=== PATIENT | male | born 1930 | race Caucasian/White ===

== ENCOUNTER 2017-02-19 10:44 | Emergency (ER) | payer OTHER ==
[~2017-02-19] VITALS: Ht 180.3 cm; Wt 60.1 kg
[~2017-02-19 10:44] MED LIST: ADVAIR HFA120 INHALA IH; ASPIR 8181 M1 PO; ASPIR-TRIN325 M1 PO; BETIMOL 0.100 DROP/5 RIGHT EYE; CIPROFLOXACIN500 M1 PO; COLACE100 MG PO; CYANOCOBALAM1000 MCG PO; Colace PO; DAILY VITE1 EAC1 PO; DOCUSATE SODIU100 MG PO; DONNATAL1 TABLET PO; DULCOLAX10 MG PR; Dulcolax PO; Ecotrin PO; FLOMAX0.4 MG PO; LIPITOR20 MG PO; LO-DOSE ASPIRIN81 M1 PO; LORAZEPAM0.5 MG PO; MELATIN3 MG PO; MILK OF MAGN PO; NORVASC10 MG PO; Norvasc PO; Oyst-Cal D, Oscal W/ PO; PANTOPRAZOLE SO40 MG PO; PREDNISONE2.5 MG PO; PREDNISONE5 M2 PO; Protonix PO; SENOKOT S,PE1 TABLET PO; SERAX10 MG PO; SPIRIVA RESPIMAT4 GM IH; Senokot S,Pericolace PO; TAMSULOSIN HCL0.4 MG PO; THERAGRAN1 TABLET PO; TIMOPTIC OP; TIMOPTIC-0100 DROP/1 BOTH EYES; Timoptic-0.5%,Isatol BOTH EYES; Tylenol Regular Stre PO; Vitamin B-12 PO; ZOLOFT25 MG PO; Zocor PO; predniSONE PO
[2017-02-19 12:11] LABS: EOSINOPHIL (%) 0.8 % (0-5); IMMATURE GRANULOCYTE (%) 0.4 % (0.0-0.7); INSTRUMENT ABS NEUTROPHIL CT 3.6 K/uL; LYMPHOCYTE COUNT 0.4 K/uL (1.0-2.8); MCH 25.2 PG (29.0-34.0); MCHC 30.3 G/DL (30.0-36.0); MCV 83.1 FL (86-99); MONOCYTE COUNT 0.8 K/uL (0-0.8); NEUTROPHIL (%) 73.9 % (45-76); NEUTROPHIL COUNT 3.6 K/uL (1.8-6.4); PLATELET COUNT 248 K/uL (156-360); RBC DIS.WIDTH-CV 18.7 % (11.8-14.6); RBC DIS.WIDTH-SD 56.6 % (39-53); RED BLOOD COUNT 3.97 M/uL (4.00-5.50); WHITE BLOOD COUNT 4.8 K/uL (4.1-10.2)
[2017-02-19 12:25] LABS: CHLORIDE 105 mEq/L (99-109); SODIUM 137 mEq/L (136-147)
[2017-02-19 12:26] LABS: GLUCOSE 85 mg/dL (70-99)
[2017-02-19 12:28] LABS: ANION GAP 6 MEQ/L (2-14)
[2017-02-19 12:30] LABS: GFR ESTIMATE (CALCULATED) > 59 mL/min/
[2017-02-19 12:31] LABS: UREA NITROGEN (BUN) 23 mg/dL (9-23)
[2017-02-19 13:54] LABS: ADD MIUA? YES; BILIRUBIN NEGATIVE; BLOOD NEGATIVE; COLOR YELLOW ((YELLOW)); GLUCOSE (STRIP) NEGATIVE; KETONES NEGATIVE; LEUKOCYTES TRACE; NITRITE NEGATIVE; PROTEIN (STRIP) NEGATIVE; SPECIFIC GRAVITY 1.015 (1.000-1.030); UROBILINOGEN 0.2 MG/DL (0.2-1.0)
[2017-02-19 14:01] LABS: BACTERIA RARE /HPF; EPITHELIAL CELLS NONE SEEN /HPF; HYALINE CASTS 0-5 /LPF; MUCUS TRACE /LPF; RED BLOOD CELLS 0-5 /HPF (0-5)
[2017-02-19] MEDS ORDERED: LEVAQUIN500 MG PO (14:49)
[2017-02-19 16:47] VITALS: BP 133/72
== END 2017-02-19 16:48 | disposition home or self-care (01) ==
LOC: EME 10:44
PROVIDERS: Emergency Medicine
DX: N39.0 Urinary tract infection, site not specified (principal); R53.1 Weakness; W06.XXXA Fall from bed, initial encounter; I10 Essential (primary) hypertension; Z87.442 Personal history of urinary calculi; Z85.51 Personal history of malignant neoplasm of bladder; Z86.73 Personal history of transient ischemic attack (TIA), and cerebral infarction without residual deficits; F32.9 Major depressive disorder, single episode, unspecified; Z88.1 Allergy status to other antibiotic agents; Z87.891 Personal history of nicotine dependence
CPT/HCPCS: 70450; 71010; 80048; 81003; 85025; 93005; 99281; 99284

== ENCOUNTER 2017-02-26 15:17 | Inpatient (IN) | payer OTHER ==
[~2017-02-26] VITALS: Ht 180.3 cm; Wt 48.1 kg
[~2017-02-26 15:17] MED LIST changes: +LEVAQUIN500 MG PO
[2017-02-26 16:33] LABS: HEMATOCRIT 32.2 % (38.0-50.0); MCH 25.7 PG (29.0-34.0); MCHC 30.7 G/DL (30.0-36.0); MCV 83.6 FL (86-99); MEAN PLAT.VOLUME 8.9 uM^3 (9.0-12.4); PLATELET COUNT 180 K/uL (156-360); RBC DIS.WIDTH-CV 19.1 % (11.8-14.6); RBC DIS.WIDTH-SD 57.9 % (39-53); RED BLOOD COUNT 3.85 M/uL (4.00-5.50)
[2017-02-26 16:45] LABS: CHLORIDE 104 mEq/L (99-109); POTASSIUM 3.9 mEq/L (3.7-5.4); SODIUM 136 mEq/L (136-147)
[2017-02-26 16:47] LABS: GLUCOSE 129 mg/dL (70-99)
[2017-02-26 16:48] LABS: ANION GAP 8 MEQ/L (2-14)
[2017-02-26 16:49] LABS: TOTAL BILIRUBIN 0.6 mg/dL (0.0-1.0)
[2017-02-26 16:51] LABS: ALKALINE PHOSPHATASE 80 IU/L (3-129); GFR ESTIMATE (CALCULATED) 51 mL/min/
[2017-02-26 16:52] LABS: UREA NITROGEN (BUN) 31 mg/dL (9-23)
[2017-02-26 16:53] LABS: DIRECT BILIRUBIN 0.3 mg/dL (0.0-0.3)
[2017-02-26 18:09] LABS: C DIFF TOXIN NEGATIVE (NEGATIVE)
[2017-02-26 18:11] LABS: PROBE CHECK PASS; SPECIMEN PROCESSING CONTROL PASS
[2017-02-26] MEDS ORDERED: LIPITOR20 MG PO (19:51)
[2017-02-26] MEDS ORDERED: IRON325 M1 PO (19:52)
[2017-02-26 22:10] LABS: ADD MIUA? YES; BILIRUBIN NEGATIVE; BLOOD SMALL; COLOR YELLOW ((YELLOW)); GLUCOSE (STRIP) 50; KETONES NEGATIVE; LEUKOCYTES NEGATIVE; NITRITE NEGATIVE; PROTEIN (STRIP) NEGATIVE; SPECIFIC GRAVITY 1.028 (1.000-1.030); UROBILINOGEN 0.2 MG/DL (0.2-1.0)
[2017-02-26 22:30] LABS: BACTERIA NONE SEEN /HPF; EPITHELIAL CELLS RARE /HPF; MUCUS NONE SEEN /LPF; RED BLOOD CELLS 0-5 /HPF (0-5); WHITE BLOOD CELLS 0-5 /HPF (0-5)
[2017-02-26 22:52] VITALS: BP 146/82
[2017-02-26 22:56] LABS: TROP-I INTERPRETATION NEGATIVE; TROPONIN-I 0.01 ng/mL (0.0-0.30)
[2017-02-27 03:01] VITALS: BP 130/60
[2017-02-27 03:19] LABS: HEMATOCRIT 34.6 % (38.0-50.0); MCV 82.6 FL (86-99)
[2017-02-27 03:40] LABS: TROP-I INTERPRETATION NEGATIVE; TROPONIN-I 0.04 ng/mL (0.0-0.30)
[2017-02-27 07:23] LABS: HEMATOCRIT 32.9 % (38.0-50.0); MCV 83.9 FL (86-99); MEAN PLAT.VOLUME 9.3 uM^3 (9.0-12.4); PLATELET COUNT 211 K/uL (156-360); RBC DIS.WIDTH-CV 19.6 % (11.8-14.6); RBC DIS.WIDTH-SD 60.7 % (39-53); RED BLOOD COUNT 3.92 M/uL (4.00-5.50); WHITE BLOOD COUNT 9.4 K/uL (4.1-10.2)
[2017-02-27 07:52] LABS: ANION GAP 6 MEQ/L (2-14); CHLORIDE 111 MEQ/L (99-109); GFR ESTIMATE (CALCULATED) > 59 mL/min/; GLUCOSE 105 mg/dL (70-99); POTASSIUM 3.9 MEQ/L (3.7-5.4); SAMPLE HEMOLYSIS CHECK 0; SAMPLE ICTERIC CHECK 0; SAMPLE LIPEMIA CHECK 0; SODIUM 142 MEQ/L (136-147); UREA NITROGEN (BUN) 23 mg/dL (9-23)
[2017-02-27 09:21] VITALS: BP 121/64
[2017-02-27 09:33] LABS: TROP-I INTERPRETATION NEGATIVE; TROPONIN-I 0.05 ng/mL (0.0-0.30)
[2017-02-27 14:57] LABS: HEMATOCRIT 32.4 % (38.0-50.0); MCH 26.1 PG (29.0-34.0); MCHC 30.9 G/DL (30.0-36.0); MCV 84.6 FL (86-99); MEAN PLAT.VOLUME 9.4 uM^3 (9.0-12.4); PLATELET COUNT 198 K/uL (156-360); RBC DIS.WIDTH-CV 19.3 % (11.8-14.6); RBC DIS.WIDTH-SD 59.3 % (39-53); RED BLOOD COUNT 3.83 M/uL (4.00-5.50); WHITE BLOOD COUNT 7.7 K/uL (4.1-10.2)
[2017-02-27 15:18] LABS: INTER. NORMALIZED RATIO 1.2; PTT 34.8 (25-32)
[2017-02-27 16:08] VITALS: BP 110/58
[2017-02-27 19:40] VITALS: BP 133/70
[2017-02-27 20:03] LABS: EOSINOPHIL (%) 0.2 % (0-5); IMMATURE GRANULOCYTE (%) 0.4 % (0.0-0.7); LYMPHOCYTE COUNT 0.4 K/uL (1.0-2.8); MCH 26.2 PG (29.0-34.0); MCHC 30.5 G/DL (30.0-36.0); MCV 85.6 FL (86-99); MEAN PLAT.VOLUME 9.8 uM^3 (9.0-12.4); MONOCYTE (%) 7.7 % (3-12); MONOCYTE COUNT 0.6 K/uL (0-0.8); PLATELET CLUMPS PRESENT - PLATELET COUNTS APPEARS DECREASED; RBC DIS.WIDTH-CV 19.6 % (11.8-14.6); RBC DIS.WIDTH-SD 61.2 % (39-53); RED BLOOD COUNT 4.32 M/uL (4.00-5.50); WHITE BLOOD COUNT 8.1 K/uL (4.1-10.2)
[2017-02-28 00:14] VITALS: BP 128/65
[2017-02-28 02:17] LABS: HEMATOCRIT 31.3 % (38.0-50.0); MCH 25.3 PG (29.0-34.0); MCHC 30.4 G/DL (30.0-36.0); MCV 83.2 FL (86-99); MEAN PLAT.VOLUME 9.1 uM^3 (9.0-12.4); PLATELET COUNT 199 K/uL (156-360); RBC DIS.WIDTH-CV 19.4 % (11.8-14.6); RBC DIS.WIDTH-SD 58.5 % (39-53); RED BLOOD COUNT 3.76 M/uL (4.00-5.50); WHITE BLOOD COUNT 7.2 K/uL (4.1-10.2)
[2017-02-28 03:45] VITALS: BP 131/62
[2017-02-28 07:31] LABS: EOSINOPHIL COUNT 0.1 K/uL (0-0.3); HEMATOCRIT 32.2 % (38.0-50.0); IMMATURE GRANULOCYTE (%) 0.5 % (0.0-0.7); INSTRUMENT ABS NEUTROPHIL CT 4.9 K/uL; LYMPHOCYTE COUNT 0.4 K/uL (1.0-2.8); MCH 26.3 PG (29.0-34.0); MCHC 31.4 G/DL (30.0-36.0); MCV 83.9 FL (86-99); MEAN PLAT.VOLUME 9.1 uM^3 (9.0-12.4); MONOCYTE (%) 11.5 % (3-12); MONOCYTE COUNT 0.7 K/uL (0-0.8); NEUTROPHIL (%) 79.9 % (45-76); NEUTROPHIL COUNT 4.9 K/uL (1.8-6.4); PLATELET COUNT 196 K/uL (156-360); RBC DIS.WIDTH-CV 19.5 % (11.8-14.6); RBC DIS.WIDTH-SD 59.9 % (39-53); RED BLOOD COUNT 3.84 M/uL (4.00-5.50); WHITE BLOOD COUNT 6.2 K/uL (4.1-10.2)
[2017-02-28 12:00] VITALS: BP 119/56
[2017-02-28 15:04] LABS: HEMATOCRIT 32.8 % (38.0-50.0); MCH 26.4 PG (29.0-34.0); MCHC 30.8 G/DL (30.0-36.0); MCV 85.6 FL (86-99); MEAN PLAT.VOLUME 9.2 uM^3 (9.0-12.4); PLATELET COUNT 237 K/uL (156-360); RBC DIS.WIDTH-CV 19.6 % (11.8-14.6); RBC DIS.WIDTH-SD 61.1 % (39-53); RED BLOOD COUNT 3.83 M/uL (4.00-5.50)
[2017-02-28 16:00] VITALS: BP 136/83
[2017-02-28 19:45] VITALS: BP 138/82
[2017-02-28 23:40] VITALS: BP 133/65
[2017-03-01 03:22] VITALS: BP 134/92
[2017-03-01 07:08] LABS: EOSINOPHIL (%) 1.1 % (0-5); EOSINOPHIL COUNT 0.1 K/uL (0-0.3); HEMATOCRIT 31.3 % (38.0-50.0); IMMATURE GRANULOCYTE (%) 0.5 % (0.0-0.7); LYMPHOCYTE COUNT 0.5 K/uL (1.0-2.8); MCV 83.9 FL (86-99); MEAN PLAT.VOLUME 9.1 uM^3 (9.0-12.4); MONOCYTE (%) 11.1 % (3-12); MONOCYTE COUNT 0.7 K/uL (0-0.8); NEUTROPHIL (%) 79.8 % (45-76); PLATELET COUNT 206 K/uL (156-360); RBC DIS.WIDTH-CV 19.3 % (11.8-14.6); RBC DIS.WIDTH-SD 59.3 % (39-53); RED BLOOD COUNT 3.73 M/uL (4.00-5.50); WHITE BLOOD COUNT 6.2 K/uL (4.1-10.2)
[2017-03-01 07:32] LABS: ALKALINE PHOSPHATASE 69 IU/L (3-129); ANION GAP 6 MEQ/L (2-14); CHLORIDE 110 MEQ/L (99-109); GFR ESTIMATE (CALCULATED) > 59 mL/min/; GLUCOSE 82 mg/dL (70-99); POTASSIUM 3.2 MEQ/L (3.7-5.4); SAMPLE HEMOLYSIS CHECK 0; SAMPLE ICTERIC CHECK 0; SAMPLE LIPEMIA CHECK 0; SODIUM 139 MEQ/L (136-147); TOTAL BILIRUBIN 0.6 MG/DL (0.0-1.0); UREA NITROGEN (BUN) 13 mg/dL (9-23)
[2017-03-01 08:00] VITALS: BP 141/78
[2017-03-01 11:43] VITALS: BP 132/74
[2017-03-01 16:48] VITALS: BP 143/67
[2017-03-02 07:09] LABS: EOSINOPHIL (%) 1.3 % (0-5); EOSINOPHIL COUNT 0.1 K/uL (0-0.3); HEMATOCRIT 34.2 % (38.0-50.0); IMMATURE GRANULOCYTE (%) 0.6 % (0.0-0.7); INSTRUMENT ABS NEUTROPHIL CT 3.9 K/uL; LYMPHOCYTE COUNT 0.5 K/uL (1.0-2.8); MCH 26.1 PG (29.0-34.0); MCV 84.2 FL (86-99); MEAN PLAT.VOLUME 9.5 uM^3 (9.0-12.4); MONOCYTE COUNT 0.8 K/uL (0-0.8); NEUTROPHIL (%) 73.5 % (45-76); NEUTROPHIL COUNT 3.9 K/uL (1.8-6.4); PLATELET COUNT 243 K/uL (156-360); RBC DIS.WIDTH-CV 19.3 % (11.8-14.6); RBC DIS.WIDTH-SD 59.8 % (39-53); RED BLOOD COUNT 4.06 M/uL (4.00-5.50); WHITE BLOOD COUNT 5.3 K/uL (4.1-10.2)
[2017-03-02 07:40] LABS: ANION GAP 11 MEQ/L (2-14); CHLORIDE 103 MEQ/L (99-109); GFR ESTIMATE (CALCULATED) > 59 mL/min/; GLUCOSE 66 mg/dL (70-99); SAMPLE HEMOLYSIS CHECK 0; SAMPLE ICTERIC CHECK 0; SAMPLE LIPEMIA CHECK 0; SODIUM 137 MEQ/L (136-147); UREA NITROGEN (BUN) 14 mg/dL (9-23)
[2017-03-02 07:47] VITALS: BP 161/78
[2017-03-02 07:47] LABS: POTASSIUM 4.2 MEQ/L (3.7-5.4)
[2017-03-02 15:27] VITALS: BP 146/81
[2017-03-02 23:30] VITALS: BP 140/78
[2017-03-03 06:48] LABS: HEMATOCRIT 35.9 % (38.0-50.0); MCH 25.9 PG (29.0-34.0); MCHC 31.2 G/DL (30.0-36.0); MCV 82.9 FL (86-99); MEAN PLAT.VOLUME 9.1 uM^3 (9.0-12.4); PLATELET COUNT 274 K/uL (156-360); RBC DIS.WIDTH-CV 18.8 % (11.8-14.6); RBC DIS.WIDTH-SD 57.2 % (39-53); RED BLOOD COUNT 4.33 M/uL (4.00-5.50); WHITE BLOOD COUNT 5.4 K/uL (4.1-10.2)
[2017-03-03 15:05] VITALS: BP 143/74
[2017-03-03 23:45] VITALS: BP 148/69
[2017-03-04 06:42] LABS: HEMATOCRIT 34.3 % (38.0-50.0); MCHC 31.5 G/DL (30.0-36.0); MCV 82.7 FL (86-99); MEAN PLAT.VOLUME 9.2 uM^3 (9.0-12.4); PLATELET COUNT 253 K/uL (156-360); RBC DIS.WIDTH-SD 57.4 % (39-53); RED BLOOD COUNT 4.15 M/uL (4.00-5.50); WHITE BLOOD COUNT 4.2 K/uL (4.1-10.2)
[2017-03-04 07:16] LABS: ANION GAP 7 MEQ/L (2-14); CHLORIDE 106 MEQ/L (99-109); GFR ESTIMATE (CALCULATED) > 59 mL/min/; MAGNESIUM 1.6 mg/dl (1.3-2.7); POTASSIUM 3.4 MEQ/L (3.7-5.4); SAMPLE HEMOLYSIS CHECK 0; SAMPLE ICTERIC CHECK 0; SAMPLE LIPEMIA CHECK 0; SODIUM 139 MEQ/L (136-147); UREA NITROGEN (BUN) 10 mg/dL (9-23)
[2017-03-04 07:20] LABS: GLUCOSE 111 mg/dL (70-99)
[2017-03-04 07:30] VITALS: BP 140/74
[2017-03-04 16:00] VITALS: BP 131/86
[2017-03-04 20:17] VITALS: BP 138/90
[2017-03-04 23:17] VITALS: BP 125/72
[2017-03-05 04:33] VITALS: BP 115/65
[2017-03-05 05:55] LABS: HEMATOCRIT 33.5 % (38.0-50.0); MCH 26.2 PG (29.0-34.0); MCHC 31.6 G/DL (30.0-36.0); MCV 82.7 FL (86-99); MEAN PLAT.VOLUME 8.8 uM^3 (9.0-12.4); PLATELET COUNT 247 K/uL (156-360); RBC DIS.WIDTH-SD 57.6 % (39-53); RED BLOOD COUNT 4.05 M/uL (4.00-5.50)
[2017-03-05 08:25] VITALS: BP 133/78
[2017-03-05 16:29] VITALS: BP 129/90
[2017-03-05 23:50] VITALS: BP 135/80
[2017-03-06 06:39] LABS: HEMATOCRIT 33.9 % (38.0-50.0); MCH 26.7 PG (29.0-34.0); MCHC 32.2 G/DL (30.0-36.0); MCV 82.9 FL (86-99); PLATELET COUNT 249 K/uL (156-360); RBC DIS.WIDTH-CV 19.3 % (11.8-14.6); RBC DIS.WIDTH-SD 57.7 % (39-53); RED BLOOD COUNT 4.09 M/uL (4.00-5.50); WHITE BLOOD COUNT 5.3 K/uL (4.1-10.2)
[2017-03-06 07:57] VITALS: BP 131/77
[2017-03-06 15:36] VITALS: BP 140/55
[2017-03-06 23:05] VITALS: BP 128/72
[2017-03-07 07:18] LABS: HEMATOCRIT 33.7 % (38.0-50.0); MCH 25.7 PG (29.0-34.0); MCHC 30.9 G/DL (30.0-36.0); MCV 83.4 FL (86-99); MEAN PLAT.VOLUME 9.3 uM^3 (9.0-12.4); PLATELET COUNT 244 K/uL (156-360); RBC DIS.WIDTH-CV 19.3 % (11.8-14.6); RBC DIS.WIDTH-SD 59.1 % (39-53); RED BLOOD COUNT 4.04 M/uL (4.00-5.50); WHITE BLOOD COUNT 4.6 K/uL (4.1-10.2)
[2017-03-07 08:00] VITALS: BP 153/90
[2017-03-07 16:50] VITALS: BP 125/85
== END 2017-03-07 18:09 | DRG 640 ==
LOC: EME 15:17 → 2EAST 20:51 → EDOF 20:51 → 2EAST 22:24
PROVIDERS: Emergency Medicine; Hospitalist; Internal Medicine; Specialist
DX: E86.1 Hypovolemia (principal); E86.0 Dehydration; I27.2 Other secondary pulmonary hypertension; I36.1 Nonrheumatic tricuspid (valve) insufficiency; I35.0 Nonrheumatic aortic (valve) stenosis; G31.84 Mild cognitive impairment of uncertain or unknown etiology; I10 Essential (primary) hypertension; I25.10 Atherosclerotic heart disease of native coronary artery without angina pectoris; I65.23 Occlusion and stenosis of bilateral carotid arteries; I71.4 Abdominal aortic aneurysm, without rupture; I73.9 Peripheral vascular disease, unspecified; M19.90 Unspecified osteoarthritis, unspecified site; M79.7 Fibromyalgia; N17.9 Acute kidney failure, unspecified; D50.9 Iron deficiency anemia, unspecified; J44.0 Chronic obstructive pulmonary disease with (acute) lower respiratory infection; K64.8 Other hemorrhoids; J18.9 Pneumonia, unspecified organism; K62.5 Hemorrhage of anus and rectum; K62.89 Other specified diseases of anus and rectum; R19.7 Diarrhea, unspecified; Z51.5 Encounter for palliative care; Z66 Do not resuscitate; R29.6 Repeated falls; N28.9 Disorder of kidney and ureter, unspecified; R13.10 Dysphagia, unspecified; F05 Delirium due to known physiological condition; M48.56XA Collapsed vertebra, not elsewhere classified, lumbar region, initial encounter for fracture; H54.7 Unspecified visual loss; Z86.73 Personal history of transient ischemic attack (TIA), and cerebral infarction without residual deficits; Z68.1 Body mass index [BMI] 19.9 or less, adult; Z87.442 Personal history of urinary calculi; Z87.891 Personal history of nicotine dependence; Z88.5 Allergy status to narcotic agent; Z85.51 Personal history of malignant neoplasm of bladder; Z82.49 Family history of ischemic heart disease and other diseases of the circulatory system
CPT/HCPCS: 70450; 71020; 73030; 73502; 74177; 74230; 80048; 80053; 80076; 81003; 82607; 82746; 83605; 83735; 84484; 85014; 85018; 85025; 85025 91; 85027; 85610; 85730; 86900; 86901; 86920; 87040; 87177; 87493; 87506; 92526 GN; 92610 GN; 92611 GN; 93005; 93880; 93925; 97530 GO; 97530 GP; 99281; 99285; C9113; J0696; J1644; J3480; J7030; J7042; J7050; J7512

== ENCOUNTER → 2017-03-28 | Outpatient (CLI) | payer OTHER ==
[~2017-03-28] MED LIST changes: +IRON325 M1 PO
== END ==
LOC: RAD 13:26
DX: R13.10 Dysphagia, unspecified (principal)
CPT/HCPCS: 74230; 92611 GN; G8996 GN CH; G8997 GN CH; G8998 GN CH